=== PATIENT | male | born 1980 | race Two or more races ===

== ENCOUNTER 2025-05-26 13:15 | Emergency (ER) | payer OTHER ==
[~2025-05-26] VITALS: Ht 182.9 cm; Wt 78.0 kg
[2025-05-26 13:24] VITALS: O2SAT 98
[2025-05-26] MEDS: SODIUM CHLORIDE 0.9% 1,000 ML IV ONE (13:45)
[2025-05-26 15:53] LABS: BASOPHILS % 0.2 % (0.0-2.0); EOSINOPHILS % 1.0 % (0.0-5.0); HEMATOCRIT. 45.4 % (42.0-52.0); HEMOGLOBIN. 15.2 g/dL (14.0-18.0); LYMPHOCYTES % 15.5 % (20.0-50.0); MEAN PLATELET VOLUME 9.5 fl (7.4-10.4); MONOCYTES % 5.3 % (2.0-8.0); NEUTROPHILS % 78.0 % (40.0-76.0); PLATELET 177 x1000/uL (130-400); RED BLOOD CELL COUNT 5.06 mill/uL (4.7-6.1); RED CELL DISTRIBUTION WIDTH 12.7 % (11.6-14.6)
[2025-05-26 16:08] LABS: CREATININE 0.9 mg/dL (0.6-1.3); UREA NITROGEN BLOOD 12 mg/dL (9-23)
[2025-05-26 16:09] LABS: TROPONIN I HIGH SENSITIVITY < 4 ng/L (3.0-53)
[2025-05-26 16:10] LABS: ASPARTATE AMINOTRANSFERASE 30 IU/L (<34); BILIRUBIN DIRECT 0.3 mg/dL (<=3.0)
[2025-05-26 16:11] LABS: BILIRUBIN TOTAL 1.0 mg/dL (0.1-1.0); PROTEIN TOTAL 7.1 g/dL (6.0-8.3)
[2025-05-26 16:56] VITALS: BP 109/63; PULSE 61; RESP 16; TEMP 36.8; O2SAT 100
== END 2025-05-26 17:00 | disposition home or self-care (01) ==
LOC: ER 13:15 → CMPBEDREQ 05-27 08:52
DX: E86.0 Dehydration (principal); R55 Syncope and collapse
CPT/HCPCS: 99285; 96360; 71045; 80076; 80048; 82962; 83880; 83735; 85025; 85379; 84484; 36415; 93005; J7030